=== PATIENT | female | born 1985 | race Caucasian/White ===

== ENCOUNTER 2016-12-21 13:17 | Emergency (ER) | payer OTHER ==
[~2016-12-21] VITALS: Ht 162.6 cm; Wt 116.0 kg
[~2016-12-21 13:17] MED LIST: ALBU18HF IH
[2016-12-21 13:18] VITALS: Ht 162.6 cm; Wt 116.0 kg
--- NOTE | 2016-12-21 15:53 | RADRPT ---
PROCEDURE: XR Chest. CLINICAL INDICATION: Posterior chest pain. TECHNIQUE: Single frontal view. COMPARISON: None. FINDINGS: The lungs are clear. The heart size is normal. There is no pleural effusion. There is no pneumothorax. IMPRESSION: 1. Normal chest radiograph. RPTAT: QQ .Jono Suarez MD, Date Time Electronically viewed and signed by .Jono Suarez MD, on 12/21/2016 15:53 .R/
[2016-12-21] MEDS ORDERED: NAPR-260 PO (15:57)
--- NOTE | 2016-12-21 16:10 | ERD ---
ER Documentation Chief Complaint Date/Time DATE: 12/21/16 TIME: 16:04 Chief Complaint lt side chest pain radiating to back since 0900 with sob HPI Patient is a 31-year-old female who presents to the ED with left back pain that started this morning. She states that she reached for something this morning and felt the pain behind her back. She states that the pain radiated up to her left shoulder. She denies chest pain, cough or difficulty breathing. She states that she had an episode of shortness of breath with the pain. She states that the pain occurs when she moves her arm in different directions. She denies leg pain or swelling. She denies hemoptysis, night sweats or fevers or chills. She denies abdominal pain, nausea, vomiting, diarrhea or constipation. ROS All systems reviewed and are negative except as per history of present illness. Medications Home Meds Active Scripts Naproxen* (Naprosyn*) 500 Mg Tablet, 500 MG PO BID Y for PAIN AND/OR INFLAMMATION, #30 TAB Prov:WANG RAMIREZ PA-C 12/21/16 Reported Medications Albuterol Sulfate* (Ventolin HFA*) 18 Gm Hfa.aer.ad, 2 PUFF IH Q4H Y for WHEEZING AND RESP DISTRESS, EA 04/13/14 Allergies Allergies: Coded Allergies: No Known Allergy (Unverified , 04/13/14) PMhx/Soc History of Surgery: No Anesthesia Reaction: No Hx Neurological Disorder: No Hx Respiratory Disorders: No (asthma) Hx Cardiac Disorders: No Hx Psychiatric Problems: No Hx Miscellaneous Medical Probl: No Hx Alcohol Use: No Hx Substance Use: No Hx Tobacco Use: No Physical Exam Vitals Vital Signs Date Time Temp Pulse Resp B/P Pulse Ox O2 Delivery O2 Flow Rate FiO2 12/21/16 13:18 97.7 85 18 147/98 99 Physical Exam GENERAL: Well-developed, well-nourished female. Appears in no acute distress. HEAD: Normocephalic, atraumatic. EYES: Pupils are equally reactive bilaterally. EOMs grossly intact. No conjunctival erythema. ENT: Moist mucous membranes. No uvula deviation. No kissing tonsils. No exudates. NECK: Supple. No lymphadenopathy or thyromegaly. No meningismus. negative kernig. negative brudinski. LUNG: Clear to auscultation bilaterally. No rhonchi, wheezing, rales or coarse breath sounds. HEART: Regular rate and rhythm. No murmurs, rubs or gallops. Extremities: Equal pulses bilaterally. No peripheral clubbing, cyanosis or edema. No unilateral leg swelling. Negative Homans sign NEUROLOGIC: Alert and oriented. Moving all four extremities. 5/5 strength in all extremities. Normal speech. Steady gait. Cranial nerves II through XII intact SKIN: Normal color. Warm and dry. No rashes or lesions. Capillary refill < 2 seconds Procedures/MDM ER COURSE: I kept the patient and/or family informed of laboratory and diagnostic imaging results throughout the emergency room course. IMAGING STUDIES EKG performed, read by Dr. Mendenhall 87bpm, normal sinus rhythm, normal axis, no acute ST segment changes, no T wave inversion [place] [id number] Radiology Main Line: [phone] DIAGNOSTIC IMAGING REPORT Patient: HERSON ABBOTT : 1985 Age: 31 Sex: F MR #: [id number] DOS: 12/21/16 1505 Ordering MD: WANG RAMIREZ PA-C Location: [facility] Room/Bed: PROCEDURE: XR Chest. CLINICAL INDICATION: Posterior chest pain. TECHNIQUE: Single frontal view. COMPARISON: None. FINDINGS: The lungs are clear. The heart size is normal. There is no pleural effusion. There is no pneumothorax. IMPRESSION: 1. Normal chest radiograph. RPTAT: QQ .Jono Suarez MD, Date Time Electronically viewed and signed by .Jono Suarez MD, MD on 12/21/2016 15:53 .R/ CC: WANG RAMIREZ PA-C MEDICAL DECISION MAKING: This is a 31-year-old female who presents with low back pain and side pain. Vital signs were reviewed. Patient is afebrile. Patient is not hypoxic. Patient is not toxic or ill-appearing. Patient likely has muscle strain versus sprain versus chest wall pain. Her pain is reproducible upon examination with movement of her arms. There is no erythema or swelling. Low suspicion for ACS , PE, AAA, dissection, DVT. I have low suspicion for cardiac emergency. Patient has no risk factors and I have low suspicion for cardiac emergency. No further blood work is needed today. DISCHARGE: At this time, patient is stable for discharge and outpatient management with no new complaints during the ER course. Patient was sent home with Moiz and a copy of her x-ray report. Patient will be discharged home with instructions to recheck for new or worsening symptoms such as fever, nausea, weakness, LOC and to follow up with primary care in the next 1-2 days. Patient was advised to return to the ER for any new or worsening symptoms. Plan was discussed and patient and/or family understands and agrees. Home instructions were given. Departure Diagnosis: Primary Impression: Muscle strain Condition: Stable Patient Instructions: Chest Wall Pain, Costochondritis Additional Instructions: Call your primary care doctor TOMORROW for an appointment during the next 1-2 days.See the doctor sooner or return here if your condition worsens before your appointment time. WANG RAMIREZ PA-C Dec 21, 2016 16:09
== END 2016-12-21 16:41 | disposition home or self-care (01) ==
LOC: FTE 13:17
DX: S29.011A Strain of muscle and tendon of front wall of thorax, initial encounter (principal); J45.909 Unspecified asthma, uncomplicated; R07.9 Chest pain, unspecified; X50.9XXA Other and unspecified overexertion or strenuous movements or postures, initial encounter; Y92.9 Unspecified place or not applicable
CPT/HCPCS: 71010; 93005; Z7502

== ENCOUNTER 2019-04-16 05:32 | Emergency (ER) | payer MEDICAID, OTHER ==
[~2019-04-16] VITALS: Ht 165.1 cm; Wt 90.2 kg
[~2019-04-16 05:32] MED LIST changes: +NAPR-985 PO
[2019-04-16 05:35] VITALS: Ht 165.1 cm; Wt 90.2 kg
[2019-04-16] MEDS ORDERED: ACETAMINOPHEN 500 MG TAB PO STA (05:49)
--- NOTE | 2019-04-16 05:54 | EN ---
Date/Time of Note Date/Time of Note DATE: 04/16/19 TIME: 05:51 ER Progress Note This is a 33-year-old female who presents here in the emergency department with complaints of vaginal malodorous yellowish discharge, pelvic pain for about 2 days. Stated that she is sexually active with one partner only. Partner has no symptoms. Stated that she is 9 weeks . LMP: 02/18/2019. VADIM: 11/25/2019. Denies headache, head injury, loss of consciousness, dizziness, neck pain, neck stiffness, throat pain, difficulty swallowing, difficulty breathing lying flat, shoulder pain, chest pain, back pain, abdominal pain, nausea, vomiting, constipation, diarrhea, urinary symptoms, loss of bowel and bladder control, t rauma, injury, falls, difficulty walking due to pain, numbness or tingling sensation, calf pain, recent travel, recent major surgery in the last 3 weeks, calf pain, recent long travel, recent exposure to any illness, recent antibiotic use in the last 3 months, fever, chills, seizures. Past medical history: Denies. Surgical history: Gastric bypass. Social: Denies smoking, use of alcoholic beverages, use of illegal drugs. Rapid medical exam: Const: No acute distress Head: Atraumatic Eyes: Normal Conjunctiva. ENT: Normal External Ears, Nose and Mouth. Neck: Full range of motion. No meningismus. Resp: Clear to auscultation bilaterally Cardio: Regular rate and rhythm, no murmurs Abd: Soft, non tender, non distended. Normal bowel sounds. Negative Lloyd sign. Negative Washington sign (heel jar test). Negative psoas sign. Negative Rovsing sign. Able to jump 10 times without developing lower abdominal pain. No CVA tenderness. Ambulatory with steady gait and without pain to abdomen. Skin: No petechiae or rashes. Color appears normal for ethnicity. No skin tenting. No signs of severe dehydration. Back: No midline or flank tenderness Ext: No cyanosis, or edema Neur: Awake and alert. No neurological deficits. Psych: Normal Mood and Affect Rapid medical screening was done. Patient has no life-threatening emergency/condition at this time. Initial treatment, blood works, imaging was ordered. Patient will be seen by another provider/MD/PA/DIAPHRAGM BUILDER. In case I do not see this patient after my initial contact, all of her questions was answered. SAPNA CARDONA Apr 16, 2019 05:54
--- NOTE | 2019-04-16 08:04 | ERD ---
ER Documentation Chief Complaint Chief Complaint pelvic pain x 2 days, states 9 weeks , denies vb HPI Patient is a 33-year-old female, G1, P0, presents the ER for concerns of suprapubic pain along with dysuria and urinary frequency for last 2 days. Patient is approximate 9 weeks . Patient's last menstrual period was 619. Patient denies any fevers or chills. Patient denies any nausea or vomiting. Patient denies any vaginal bleeding. Patient does not know the name of her SERVICE DESK TEAM LEAD, however states her SERVICE DESK TEAM LEAD is in [facility]. ROS All systems reviewed and are negative except as per history of present illness. Medications Home Meds Active Scripts Cephalexin* (Keflex*) 500 Mg Capsule, 500 MG PO TID for 7 Days, CAP Prov:MARGARETH LANGLEY PA-C 04/16/19 [id number] ( 19) 1 Each Tablet, 1 TAB PO DAILY, #30 TAB Prov:MARGARETH LANGLEY PA-C 04/16/19 Naproxen* (Naprosyn*) 500 Mg Tablet, 500 MG PO BID PRN for PAIN AND/OR INFLAMMATION, #30 TAB Prov:WANG RAMIREZ PA-C 12/21/16 Reported Medications Albuterol Sulfate* (Ventolin HFA*) 18 Gm Hfa.aer.ad, 2 PUFF IH Q4H PRN for WHEEZING AND RESP DISTRESS, EA 04/13/14 Allergies Allergies: Coded Allergies: No Known Allergy (Unverified , 04/13/14) PMhx/Soc History of Surgery: No Anesthesia Reaction: No Hx Neurological Disorder: No Hx Respiratory Disorders: No (asthma) Hx Cardiac Disorders: No Hx Psychiatric Problems: No Hx Miscellaneous Medical Probl: No Hx Alcohol Use: No Hx Substance Use: No Hx Tobacco Use: No Smoking Status: Never smoker FmHx Family History: No diabetes Physical Exam Vitals Vital Signs Date Temp Pulse Resp B/P (MAP) Pulse Ox O2 O2 Flow FiO2 Time Delivery Rate 04/16/19 97.8 82 18 132/64 98 05:35 (86) Physical Exam GENERAL: Well-developed, well-nourished female. Appears in no acute distress. HEAD: Normocephalic, atraumatic. EYES: Pupils are equally reactive bilaterally. EOMs grossly intact. No con junctival erythema. NECK: Supple. No meningismus. Normal range of motion of the neck. LUNG: Clear to auscultation bilaterally. No rhonchi, wheezing, rales or coarse breath sounds. HEART: Regular rate and rhythm. No murmurs, rubs or gallops. ABDOMEN: Soft, nontender, and nondistended. Positive bowel sounds in all four quadrants. No rebound tenderness, no guarding. (-) McBurney's point tenderness. No CVA tenderness. EXTREMITIES: Equal pulses bilaterally. No peripheral clubbing, cyanosis or edema . No unilateral leg swelling. NEUROLOGIC: Alert and oriented. Moving all four extremities without any difficulty. Normal speech. Steady gait. SKIN: Normal color. Warm and dry. No rashes or lesions. Result Diagram: 04/16/19 0557 04/16/19 0557 Results 24 hrs Laboratory Tests Test 04/16/19 05:50 04/16/19 05:57 Urine Color PURA Urine Clarity CLOUDY Urine pH 5.0 Urine Specific [place] 1.029 Urine Ketones TRACE mg/dL Urine Nitrite NEGATIVE mg/dL Urine Bilirubin NEGATIVE mg/dL Urine Urobilinogen NEGATIVE mg/dL Urine Leukocyte Esterase 3+ Yohan/ul Urine Microscopic RBC 9 /HPF Urine Microscopic WBC 52 /HPF Urine Squamous Epithelial Cells MANY /HPF Urine Bacteria FEW /HPF Urine Mucus MANY /HPF Urine Hemoglobin NEGATIVE mg/dL Urine Glucose NEGATIVE mg/dL Urine Total Protein 1+ mg/dl White Blood Count 6.7 10^3/ul Red Blood Count 3.96 10^6/ul Hemoglobin 8.9 g/dl Hematocrit 29.0 % Mean Corpuscular Volume 73.2 fl Mean Corpuscular Hemoglobin 22.5 pg Mean Corpuscular Hemoglobin Concent 30.7 g/dl Red Cell Distribution Width 17.6 % Platelet Count 298 10^3/UL Mean Platelet Volume 11.1 fl Immature Granulocytes % 0.100 % Neutrophils % 54.7 % Lymphocytes % 34.4 % Monocytes % 8.9 % Eosinophils % 1.5 % Basophils % 0.4 % Nucleated Red Blood Cells % 0.0 /100WBC Immature Granulocytes # 0.010 10^3/ul Neutrophils # 3.7 10^3/ul Lymphocytes # 2.3 10^3/ul Monocytes # 0.6 10^3/ul Eosinophils # 0.1 10^3/ul Basophils # 0.0 10^3/ul Nucleated Red Blood Cells # 0.0 10^3/ul Sodium Level 140 mmol/L Potassium Level 3.9 mmol/L Chloride Level 107 mmol/L Carbon Dioxide Level 25 mmol/L Anion Gap 8 Blood Urea Nitrogen 13 mg/dl Creatinine 0.49 mg/dl Est Glomerular Filtrat Rate mL/min > 60 mL/min Glucose Level 88 mg/dl Calcium Level 9.5 mg/dl Total Bilirubin 0.3 mg/dl Direct Bilirubin 0.00 mg/dl Indirect Bilirubin 0.3 mg/dl Aspartate Amino Transf (AST/SGOT) 23 IU/L Alanine Aminotransferase (ALT/SGPT) 20 IU/L Alkaline Phosphatase 60 IU/L Total Protein 7.1 g/dl Albumin 3.7 g/dl Globulin 3.40 g/dl Albumin/Globulin Ratio 1.08 Beta HCG, Quantitative 136170.0 mIU/ml Current Medications Medications Dose Sig/Shoshana Start Time Status Last (Trade) Ordered Route PRN Stop Time Admin Dose Reason Admin 500 mg ONCE STAT 04/16/19 DC 04/16/19 Acetaminophen PO 05:49 05:57 (Tylenol 04/16/19 05:52 Tab) Procedures/MDM ED COURSE: The patient was stable throughout ED course. I kept the patient and/or family informed of laboratory and diagnostic imaging results throughout the ED course. DIAGNOSTIC IMAGING: Read by radiologist. DIAGNOSTIC IMAGING REPORT Patient: HERSON ABBOTT : 1985 Age: 33 Sex: F MR #: [id number] DOS: 04/16/19 0549 Ordering MD: SAPNA CARDONA NP Location: [facility]TE Room/Bed: PROCEDURE: US OB. CLINICAL INDICATION: Pelvic pain. TECHNIQUE: Transabdominal and transvaginal views of the pelvis are available for review. COMPARISON: None. FINDINGS: The patient's last menstrual period is 02/18/2019. The uterus measures 9.1 x 6.6 x 7 cm. Mean gestational sac diameter: 3.4 cm Echogenic debris is noted within the gestational sac. Two rounded structures seen within the gestational sac. pole not identified. The right ovary measures 2.9 x 2.5 x 2.7 cm. The left ovary measures 4 x 1.8 x 3.6 cm. There is normal doppler flow to both ovaries. There is no free fluid. IMPRESSION: 1. Abnormal gestational sac with mean sac diameter measuring 3.4 cm, containing internal echogenic material, and without pole seen, concerning for failed . 2. Two rounded structures seen within the gestational sac, which may represent yolk sacs versus yolk sac and empty amniotic sac. 3. Recommend correlation with serum beta HCG and follow-up ultrasound. A call report request was made via [employer] via the radiology help desk at the time of this report. RPTAT: HPWH Shalini Allen Physician Date Time Electronically viewed and signed by Shalini Allen Physician on 04/16/2019 08:10 PH/ CC: SAPNA CARDONA [phone] MEDICAL DECISION MAKING: This is a 33-year-old female, G1, P0, presents the ER for concerns of pelvic pain, dysuria and frequency for the last 2 days. Vital signs were reviewed. Patient was afebrile. Patient was hemodynamically stable. Urine test was positive. CBC showed hemoglobin of 8.9, hematocrit of 29. Patient was advised to start taking vitamins. WBC count within normal limits. CMP showed no severe electrolyte abnormalities, acidosis, alkalosis, renal injury or liver failure. Patient's beta-hCG was noted to be [id number]. Patient's blood type was noted to be O+. UA did show 3+ leukocyte esterase. Urine was sent for culture. Urine was also sent for gonorrhea chlamydia testing. Pelvic ultrasound showed 1. Abnormal gestational sac with mean sac diameter measuring 3.4 cm, containing internal echogenic material, and without pole seen, concerning for failed . 2. Two rounded structures seen within the gestational sac, which may represent yolk sacs versus yolk sac and empty amniotic sac. 3. Recommend correlation with serum beta HCG and follow-up ultrasound. A call report request was made via [employer] via the radiology help desk at the time of this report. Consulted SERVICE DESK TEAM LEAD on-call Dr. Stiles, who states that patient's findings are consistent with a missed vs molar . Dr. Stiles examined patient here in the ER. Patient has an appointment with her SERVICE DESK TEAM LEAD later this week. Patient advised to follow-up with SERVICE DESK TEAM LEAD in regards to missed findings that she will likely need a D&C on an outpatient basis. Patient advised to return the ER for any vaginal bleeding or pain. At this time for the patient presentation most consistent with missed vs molar and UTI. Low suspicion for ectopic , septic , severe anemia, pyelonephritis, other acute processes. PRESCRIPTIONS: Flex DISCHARGE: At this time, patient is stable for discharge and outpatient management. I had a conversation at length with the patient about the concerns of vaginal bleeding during the 1st trimester of . Patient and/or family understands that her vaginal bleeding can be a normal finding or a sign of miscarriage. I have instructed the patient to follow-up with her OBGYN in 1-2 days for further monitoring including a repeat b-HCG level. I have instructed the patient to promptly return to the ER at any time for any new or worsening symptoms including increased pain, nausea, vomiting, continued bleeding, weakness, syncope or fever. The patient and/or family expressed understanding of and agreement with this plan. All questions were answered. Home care instructions were provided. Disclaimer: Inadvertent spelling and grammatical errors are likely due to EHR/dictation software use and do not reflect on the overall quality of patient care. Also, please note that the electronic time recorded on this note does not necessarily reflect the actual time of the patient encounter.Ava vaginal bleeding Departure Diagnosis: Primary Impression: Pelvic pain in patient at less than 20 weeks gestation Additional Impression: Missed Condition: Fair Patient Instructions: Pelvic Pain, Unknown Cause Referrals: [facility] YOU HAVE RECEIVED A MEDICAL SCREENING EXAM AND THE RESULTS INDICATE THAT YOU DO NOT HAVE A CONDITION THAT REQUIRES URGENT TREATMENT IN THE EMERGENCY DEPARTMENT. FURTHER EVALUATION AND TREATMENT OF YOUR CONDITION CAN WAIT UNTIL YOU ARE SEEN IN YOUR DOCTORS OFFICE WITHIN THE NEXT 1-2 DAYS. IT IS YOUR RESPONSIBILITY TO MAKE AN APPOINTMENT FOR FOLOW-UP CARE. IF YOU HAVE A PRIMARY DOCTOR --you should call your primary doctor and schedule an appointment IF YOU DO NOT HAVE A PRIMARY DOCTOR YOU CAN CALL OUR PHYSICIAN REFERRAL HOTLINE AT IF YOU CAN NOT AFFORD TO SEE A PHYSICIAN YOU CAN CHOSE FROM THE FOLLOWING [facility] [address] [place] [facility] [address] [facility] [address] [facility] [address] [facility] [address] [facility]. [facility] [address] [facility]. [facility] YOU HAVE RECEIVED A MEDICAL SCREENING EXAM AND THE RESULTS INDICATE THAT YOU DO NOT HAVE A CONDITION THAT REQUIRES URGENT TREATMENT IN THE EMERGENCY DEPARTMENT. FURTHER EVALUATION AND TREATMENT OF YOUR CONDITION CAN WAIT UNTIL YOU ARE SEEN IN YOUR DOCTORS OFFICE WITHIN THE NEXT 1-2 DAYS. IT IS YOUR RESPONSIBILITY TO MAKE AN APPOINTMENT FOR FOLOW-UP CARE. IF YOU HAVE A PRIMARY DOCTOR --you should call your primary doctor and schedule and appointment IF YOU DO NOT HAVE A PRIMARY DOCTOR YOU CAN CALL OUR PHYSICIAN REFERRAL HOTLINE AT . IF YOU CAN NOT AFFORD TO SEE A PHYSICIAN YOU CAN CHOSE FROM THE FOLLOWING [facility] INSTITUTIONS: [facility] [address] [place] [address] [facility] [address] [place] [address] [facility] [address] [place] [address] SERVICE DESK TEAM LEAD REFERRAL LIST Additional Instructions: Follow-up with your SERVICE DESK TEAM LEAD tomorrow morning. Return to the ER if you have any bleeding or pain. MARGARETH LANGLEY PA-C Apr 16, 2019 08:03
[2019-04-16] MEDS ORDERED: CEPH-443 PO (09:22)
[2019-04-16] MEDS ORDERED: PNV11TAB PO (09:22)
[2019-04-16 09:32] VITALS: BP 121/70; PULSE 74; RESP 18
--- NOTE | 2019-04-16 10:48 | QN ---
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 Apr 16, 2019 10:48
== END 2019-04-16 09:33 | disposition home or self-care (01) ==
LOC: FTE 05:32
DX: O02.1 Missed abortion (principal); R10.2 Pelvic and perineal pain
CPT/HCPCS: 76801; 76817; 80053; 81001; 84702; 85025; 86900; 86901; 87086; 87591; Z7502; Z7610